=== PATIENT | female | born 2000 | race Caucasian/White ===

== ENCOUNTER 2024-02-22 11:55 | Outpatient (CLI) | payer SELFPAY ==
--- OUTSIDE RECORDS SUMMARY | 2024-02-22 12:00 | XMS_ITS | Continuity of Care Document ---
Author Organization [facility] Address [address] [place] [address] Encounter LTTL_LA FIN NBR [id number] Date(s): 10/28/22 - 10/29/22 [facility] [address], [place] [address] Encounter Diagnosis Post-dates (Discharge Diagnosis) - 10/28/22 Spontaneous vaginal delivery(Discharge Diagnosis) - 10/29/22 Discharge Disposition: Home or Self Care Attending Physician: Edison Albright Admitting Physician: Edison Albright Referring Physician: Edison Albright Allergies, Adverse Reactions, Alerts No Known Medication Allergies Functional Status 10/29/22 Verbalizes Home Medications Accurately Family Member Travel History No recent t ravel Recent Travel History No recent travel Other exposure to Infectious Disease Non e Medications No Known Medications Problem List Condition Confirmation Course Effective Dates Status Health St atus Informant Post-dates Confirmed Active Confirmed 10/29/22 Active Normal first in third trimester Confirmed Active Spontaneous vaginal delivery Confirmed Active Results Laboratory List Name Date Automated Diff 10/29/22 ABO/Rh Echo 10/29/22 ABSC Echo (Antibody Screen Echo) 10/29/22 CBC w/ Diff 10/29/22 Most recent to oldest [Reference Range]: 1 WBC [4.8-10.8 K/mcL] 17.5 K/mcL *HI* (10/29/22 12:05 AM) RBC [4.20-5.40 Million/mcL] 4.16 Million /mcL *LOW* (10/29/22 12:05 AM) Neutro Auto [42.2-75.2 %] 82.3 % *HI* (10/29/22 12:05 AM) Lymph Auto [20.5-51.1 %] 11.9 % *LOW* (10/29/22 12:05 AM) Swift Auto [1.7-9.3 %] 5.0 % (10/29/22 12:05 AM) Basophil Auto [0.0-0.8 %] 0.2 % (10/29/22 12:05 AM) Baso Absolute [0.0-0.2 K/mcL] 0.0 K/mcL (10/29/22 12:05 AM) MCV [81.0-99.0 fL] 87.0 fL (10/29/22 12:05 AM) MCHC [32.0-36.0 g/dL] 32.6 g/dL (10/29/22 12:05 AM) Lymph Absolute [1.2-3.4 K/mcL] 2.1 K/mcL (10/29/22 12:05 AM) Hct [37.0-47.0 %] 36.2 % *LOW* (10/29/22:05 AM) Swift Absolute [0.1-0.6 K/mcL] 0.9 K/mcL *HI* (10/29/22:05 AM) MCH [27.0-31.0 pg] 28.4 pg (10/29/22 12:05 AM) Neutro Absolute [1.4-6.5 K/mcL] 14.4 K/m cL *HI* (10/29/22 12:05 AM) Hgb [12.0-16.0 g/dL] 11.8 g/dL *LOW* (10/29/22 12:05 AM) MPV [7.4-10.4 fL] 12.6 fL *HI* (10/29/22 12:05 AM) Platelets [130-400 K/mcL] 183 K/mcL (10/29/22 12:05 AM) Eos Absolute [0.0-0.2 K/mcL] 0.0 K/mcL (10/29/22 12:05 AM) RDW-CV [11.5-14.5 %] 14.2 % (10/29/22 12:05 AM) Imm Gran Absolute 0.09 *NA* (10/29/22:05 AM) Imm Gran Auto [0.0-0.5 %] 0.5 % (10/29/22 12:05 AM) ABO/Rh Echo O POS *Unknown* (4/8/23 12:05 AM) Eos, Auto [0.00-3.00 %] 0.10 % (10/29/22 12:05 AM) ABSC Echo Negative ABSC (10/29/22 12:05 AM) Vital Signs Most recent to oldest [Reference Range]: 1 2 3 Temperature Temporal Artery [36-38 Deg C] 37.2 Deg C (10/29/22 7:25 PM) 37.0 Deg C (10/29/22 1:55 PM) 37.0 Deg C (10/29/22 12:15 PM) Peripheral Pulse Rate [60-100 bpm] 98 bpm (10/29/22 1:35 AM) 98 bpm (10/29/22 1:30 AM) 78 bpm (10/29/22 1:25 AM) Heart Rate Monitored [60-100 bpm] 83 bpm (10/29/22 7:25 PM) 79 bpm (10/29/22 2:40 PM) 88 bpm (10/29/22 2:22 PM) Respiratory Rate [12-24 br/min] 18 br/min (10/29/22 7:25 PM) 16 br/min (10/29/22 2:40 PM) 18 br/min (10/29/22 2:22 PM) Blood Pressure [90-140/60-90 mmHg] 108/68mmHg (10/29/22 7:25 PM) 156/70mmHg *HI* (10/29/22 2:40 PM) 134/76mmHg (10/29/22 2:22 PM) Mean Arterial Pressure, Cuff [65-140 mmHg] 99 mmHg (10/29/22 2:40 PM) 95 mmHg (10/29/22 2:22 PM) 95 mmHg (10/29/22 2:06 PM) Blood Pressure Location Left arm (10/29/22 7:25 PM) Right arm (10/29/22 2:40 PM) Right arm (10/29/22 2:22 PM) Blood Pressure Method Automatic (10/29/22 7:25 PM) Automatic (10/29/22 2:40 PM) Automatic (10/29/22 2:22 PM) Weight 66.670 kg (10/29/22 6:58 AM) Weight Dosing 66.670 kg (10/29/22 6:58 AM) Height 165.000 cm (10/29/22 6:58 AM) Height/Length Dosing 165.000 cm (10/29/22 6:58 AM) Body Mass Index 24.490 kg/m2 (10/29/22 6:58 AM) Hospital Discharge Instructions Patient Education 10/29/2022 17:30:38 [facility] - Vaginal or Delivery Post Discharge Instructions (CUSTOM) [facility] POST DISCHARGE INSTRUCTIONS Going home after a Vaginal or delivery GENERAL: You have just had a baby. It is normal to feel tired and worn out over the next several weeks. Sleep is difficult to get when you have a . We recommend sleeping when your baby sleeps if possible or asking someone to watch your so you can nap. Some discomfort is expected after a vaginal delivery. Most times this discomfort can be adequately managed with rest, heat, Ibuprofen, and Tylenol. Occasionally a narcotic may be needed for breakthrough pain. If you begin to have pain that is not controlled with the medications you were sent home with or if you develop fever and chills, please give the office a call. Vaginal bleeding is normal as your uterus works on returning to its normal size. While nursing yourbaby your uterus may feel crampy and your bleeding may increase during these times. You may experience some clots that may be dime size, quarter size and fifty cent size. This is normal. If you continue to pass larger clots, and the flow is increasing over 4 hours, we recommend that you call the office. If you had a vaginal tear that required suturing these sutures will dissolve over the next three weeks. During this process you may notice some yellowish drainage that may have a foul odor. This is the suture material breaking down, and it is a normal process. Keep the tissue clean with your pericare bottle or by taking a bath. Tucks pads can also be helpful. If you have an incision on your abdomen these sutures will dissolve on their own over the next 2 to 3 weeks. There are sutures that are deeper inside that will take 3 months to dissolve. Remember that eating a diet rich in protein will help your incision heal. When showering let the water run over your incision and pat dry with a towel. You do not need to redress the wound. If it rubs against your pants and feels sore, it is fine to place a gauze pad between your incision and your clothing for cushioning. If you are your milk will come in three or four days after you have given . It is normal for your nipples to feel sore for the first couple of weeks, but it is not normal for them to bleed, crack, or feel so raw that you feel like stopping breast feeding. We have support on the OB unit and Kelly is also a biztalk consultant in the office. They are very willing to help and provide support in any way they can. During your we talked about what your control plans would be after your delivery. Most times we can make a plan at your six week post checkup and start the plan of your choice at that time. If we know ahead of time what your plan is we can schedule you appropriately and make sure we have what we need on hand when you come for the appointment. It is normal to experience post blues. Your hormone levels change dramatically after you deliver and this can cause you to feel tired, teary eyed, sad, and overwhelmed at times. The post blues typically improve after 2-3 weeks. Post depression can settle in after that and can be very worrisome. If you feel that you cannot stop crying, do not want to see your baby, are struggling to leave your house and/or find that your mind is racing and you can't settle down, please call [facility], and we can see you to discuss depression. ACTIVITY: If you had a vaginal tear that required suturing please avoid sexual intercourse until your six week post visit. If you had no tearing we recommend that you wait to have intercourse until all of your bleeding has stopped. Keep in mind that you can get if you aren't on anything for contraception. If your baby was delivered by please avoid sexual intercourse until your six week post visit. You should also do no heavy lifting for six weeks. Any lifting that takes the strength ofboth of your arms/hands is contraindicated. If you need both hands because whatever you are liftingis cumbersome that is fine. For example, a laundry basket with a few bath towels in it. Also it is good for you to climb stairs and to go for small walks. Your blood volume doubles during . After delivery your body works on removing all of this extra fluid. You may have noticed that your legs and ankles felt pretty swollen prior to delivery. It is normal to see this swelling get worse after delivery. It gets worse if you aren't drinking enough water and/or if you are eating foods with too much sodium. Push the water and watch your salts tohelp the swelling resolve as quickly as possible. Putting your feet up and wearing 2 pairs of socksfor compression can help as well. Most post women who wish to return to work typically do so between 6 and 12 weeks. If you feel you have recovered to the point that you are ready to return to work, please call the office and let one of the secretaries know. It is usually best to discuss your return to work with your employer and pick a date for your return you both agree upon. Let us know that date and a letter will be provided that can be faxed to your employer clearing you to return to work without restriction on yourchosen date. MEDICATIONS: Continue all regularly prescribed medications unless your provider told you to stop a particular medication after your delivery. Continue taking your vitamins until your six week post visit. Ibuprofen is the best medication for your baseline pain control. Taking 600mg by mouth every four hours well help with most of your post pain. Taking it with food is best so it doesn't upset your stomach. Taking it consistently will provide you the greatest pain relief. Tylenol combined with a narcotic: You may have been sent home with a narcotic for pain control. Taking 1 or 2 tablets every 4-6 hours as needed can be helpful for pain you have that isn't covered by the Ibuprofen. We recommend trying one tablet in an attempt to get your pain at a five or less on the pain scale. If after twenty minutes your pain is still greater than a five, you may take the second tablet. There is typically 325mg of Tylenol in each tablet. Be careful not to consume more than 3000mg of Tylenol daily. Most people will find that they need narcotic containing medications sparingly and within a few days not at all. If you had a delivery you may need this medication for a few extra days. These medications are constipating, can leave you slightly sick to your stomach and don't help with inflammation. Increase fluids and fiber. You may need an over the counter stool softener such as Colace or Senna. Taper this type of medication first and then the Ibuprofen. Our office policy is that post op patients can use narcotics in addition to Ibuprofen for up to 7 days. After that, post op pain should be treated with Ibuprofen alone and no further prescriptions for narcotics will be provided. These are the two main medications that we use for post op pain management. See below for the medications that we have recommended you use when you go home. You will have to have the prescriptions filled by your pharmacy. Ibuprofen 600mg by mouth every 4 hours for baseline pain control. Percocet 5/325mg by mouth, 1 or 2 tablets every 4 to 6 hours as needed for pain. Tylenol #3 by mouth, 1 or 2 tablets every 4 to 6 hours as needed for pain. Continue taking your vitamins at least until your six week post visit. Iron sulfate 325mg twice daily - take on an empty stomach with a glass of OJ or a vitamin C tablet until gone. Colace or Senakot once or twice daily to avoid constipation. NorQD for control taken daily at the same time starting in 2 weeks. FOLLOW UP APPOINTMENT: Post appointment is on @ . If this time does not work for you, please call the office to reschedule. The number is . If you need to contact Maternity thenumber is and ask for the Maternity Department. Follow Up Care 10/28/2022 23:39:42 With:Edison Albright Address: [address] [place] [phone] When:Within 2 Week(s) Comments:?? appointment Discharge instructions * Miriam Ryan: PERFORM Event Display: Discharge Instructions Authored Date: [id number] ENMA MCKEON :2000 Age:22 years Sex:Female Visit Date:10/28/2022 Hospital Discharge Instructions We would like to thank you for allowing us to assist you with your healthcare needs. The following includes patient education materials and information regarding your injury/illness. Your Next Steps Discharge Orders Discharge Diet Instruction, Regular Discharge Follow Up Instructions, 10/29/22 18:29:00 EDT, When following are met: Feeling improved, Follow-up with Dr. Albright in _2___ weeks . Discharge Patient Instructions, Continue vitamins. Tylenol or Motrin every 4 hours as needed for pain. Gradually increase activity. Notify doctor if temperature greater than 100.5 ??F. Nothing in vagina for 6 weeks or until bleeding stops. Contraception . Discharge Patient Instructions, Breastfeed baby Discharge Patient Instructions, No heavy lifting for 6 weeks. Discharge Patient Instructions, No driving for 48 hours. Follow Up Appointments Follow Up with??Edison Albright When:??In 2 weeks Why: ?? appointment Where: [address] [place] [phone] Your Summary Your Care Team Admitting Physician - Edison Albright Attending Physician - Edison Albright Referring Physician - Edison Albright Your Diagnosis Spontaneous vaginal delivery Post-dates Problems Ongoing - Any problem that you are currently receiving treatment for. Normal first in third trimester Post-dates Spontaneous vaginal delivery Tests Performed/Pending ABO/Rh Echo Antibody Screen Echo Automated Diff CBC w/ Diff Discharge Vitals Temperature??(Temporal Artery) 98.6 ??F (37.0 ??C) Heart Rate??(Monitored) 79 Respiratory Rate?? 16 Blood Pressure?? 156/70?? Height?? 64.96 in (165.000 cm) Weight?? 147.01 lb (66.670 kg) BMI?? 24.490 Allergies No Known Medication Allergies Education Materials [facility] POST DISCHARGE INSTRUCTIONS Going home after a Vaginal or delivery GENERAL: You have just had a baby. It is normal to feel tired and worn out over the next several weeks. Sleep is difficult to get when you have a . We recommend sleeping when your baby sleeps if possible or asking someone to watch your so you can nap. Some discomfort is expected after a vaginal delivery. Most times this discomfort can be adequately managed with rest, heat, Ibuprofen, and Tylenol. Occasionally a narcotic may be needed for breakthrough pain. If you begin to have pain that is not controlled with the medications you were sent home with or if you develop fever and chills, please give the office a call. Vaginal bleeding is normal as your uterus works on returning to its normal size. While nursing yourbaby your uterus may feel crampy and your bleeding may increase during these times. You may experience some clots that may be dime size, quarter size and fifty cent size. This is normal. If you continue to pass larger clots, and the flow is increasing over 4 hours, we recommend that you call the office. If you had a vaginal tear that required suturing these sutures will dissolve over the next three weeks. During this process you may notice some yellowish drainage that may have a foul odor. This is the suture material breaking down, and it is a normal process. Keep the tissue clean with your pericare bottle or by taking a bath. Tucks pads can also be helpful. If you have an incision on your abdomen these sutures will dissolve on their own over the next 2 to 3 weeks. There are sutures that are deeper inside that will take 3 months to dissolve. Remember that eating a diet rich in protein will help your incision heal. When showering let the water run over your incision and pat dry with a towel. You do not need to redress the wound. If it rubs against your pants and feels sore, it is fine to place a gauze pad between your incision and your clothing for cushioning. If you are your milk will come in three or four days after you have given . It is normal for your nipples to feel sore for the first couple of weeks, but it is not normal for them to bleed, crack, or feel so raw that you feel like stopping breast feeding. We have support on the OB unit and Kelly is also a biz[employer] consultant in the office. They are very willing to help and provide support in any way they can. During your we talked about what your control plans would be after your delivery. Most times we can make a plan at your six week post checkup and start the plan of your choice at that time. If we know ahead of time what your plan is we can schedule you appropriately and make sure we have what we need on hand when you come for the appointment. It is normal to experience post blues. Your hormone levels change dramatically after you deliver and this can cause you to feel tired, teary eyed, sad, and overwhelmed at times. The post blues typically improve after 2-3 weeks. Post depression can settle in after that and can be very worrisome. If you feel that you cannot stop crying, do not want to see your baby, are struggling to leave your house and/or find that your mind is racing and you can't settle down, please call [facility], and we can see you to discuss depression. ACTIVITY: If you had a vaginal tear that required suturing please avoid sexual intercourse until your six week post visit. If you had no tearing we recommend that you wait to have intercourse until all of your bleeding has stopped. Keep in mind that you can get if you aren't on anything for contraception. If your baby was delivered by please avoid sexual intercourse until your six week post visit. You should also do no heavy lifting for six weeks. Any lifting that takes the strength ofboth of your arms/hands is contraindicated. If you need both hands because whatever you are liftingis cumbersome that is fine. For example, a laundry basket with a few bath towels in it. Also it is good for you to climb stairs and to go for small walks. Your blood volume doubles during . After delivery your body works on removing all of this extra fluid. You may have noticed that your legs and ankles felt pretty swollen prior to delivery. It is normal to see this swelling get worse after delivery. It gets worse if you aren't drinking enough water and/or if you are eating foods with too much sodium. Push the water and watch your salts tohelp the swelling resolve as quickly as possible. Putting your feet up and wearing 2 pairs of socksfor compression can help as well. Most post women who wish to return to work typically do so between 6 and 12 weeks. If you feel you have recovered to the point that you are ready to return to work, please call the office and let one of the secretaries know. It is usually best to discuss your return to work with your employer and pick a date for your return you both agree upon. Let us know that date and a letter will be provided that can be faxed to your employer clearing you to return to work without restriction on yourchosen date. MEDICATIONS: Continue all regularly prescribed medications unless your provider told you to stop a particular medication after your delivery. Continue taking your vitamins until your six week post visit. Ibuprofen is the best medication for your baseline pain control. Taking 600mg by mouth every four hours well help with most of your post pain. Taking it with food is best so it doesn't upset your stomach. Taking it consistently will provide you the greatest pain relief. Tylenol combined with a narcotic: You may have been sent home with a narcotic for pain control. Taking 1 or 2 tablets every 4-6 hours as needed can be helpful for pain you have that isn't covered by the Ibuprofen. We recommend trying one tablet in an attempt to get your pain at a five or less on the pain scale. If after twenty minutes your pain is still greater than a five, you may take the second tablet. There is typically 325mg of Tylenol in each tablet. Be careful not to consume more than 3000mg of Tylenol daily. Most people will find that they need narcotic containing medications sparingly and within a few days not at all. If you had a delivery you may need this medication for a few extra days. These medications are constipating, can leave you slightly sick to your stomach and don't help with inflammation. Increase fluids and fiber. You may need an over the counter stool softener such as Colace or Senna. Taper this type of medication first and then the Ibuprofen. Our office policy is that post op patients can use narcotics in addition to Ibuprofen for up to 7 days. After that, post op pain should be treated with Ibuprofen alone and no further prescriptions for narcotics will be provided. These are the two main medications that we use for post op pain management. See below for the medications that we have recommended you use when you go home. You will have to have the prescriptions filled by your pharmacy. Ibuprofen 600mg by mouth every 4 hours for baseline pain control. Percocet 5/325mg by mouth, 1 or 2 tablets every 4 to 6 hours as needed for pain. Tylenol #3 by mouth, 1 or 2 tablets every 4 to 6 hours as needed for pain. Continue taking your vitamins at least until your six week post visit. Iron sulfate 325mg twice daily - take on an empty stomach with a glass of OJ or a vitamin C tablet until gone. Colace or Senakot once or twice daily to avoid constipation. NorQD for control taken daily at the same time starting in 2 weeks. FOLLOW UP APPOINTMENT: Post appointment is on @ . If this time does not work for you, please call the office to reschedule. The number is [phone]. If you need to contact Maternity thenumber is and ask for the Maternity Department. Patient Name:ENMA MCKEON I have received this information and my questions have been answered. Patient/Shoe Stamper Name: Patient/Shoe Stamper Signature: Relationship to Patient: Witness Name/Signature: Date: Electronically Signed on: 10/29/2022 18:47 EDTSigned by:[facility] Obstetrics Progress note * Edison Albright: PERFORM Event Display: Obstetrics Progress Note Authored Date: [id number] ENMA MCKEON :2000 Age:22 years Sex:Female Visit Date:10/28/2022 History of Present Illness Pt comfortable with her Epidural. Physical Exam Vitals & Measurements T:??37.1?C ??(Temporal Artery)?? TMIN:??36.9?C ??(Temporal Artery)?? TMAX:??37.1?C ??(Temporal Artery)?? HR:??103??(Monitored)?? BP:??101/67?? SpO2:??98%?? HT:??165.000??cm?? WT:??66.670??kg?? BMI:??24.490?? Cervix-4 cm / 100%/-1, Vertex, AROM-clear fluid Labor Details Baby A FHR Baseline:135 FHR Baseline Description:Normal, 110-160 bpm FHR Baseline Variability:Moderate variability Activity:Present per patient Membranes Membrane Status:Intact Uterine Uterine ActivityNormal Uterine Contraction Frequency5-7 Uterine Contraction Monitoring MethodExternal toco Cervical Assessment/Plan 1.??Post-dates ??O48.0 2.??Normal first in third trimester??Z34.03 IV Pitocin for??labor augmentation LMP/EGA/NIKKI No qualifying data available. Gestational Age (EGA) and NIKKI? * Note: EGA calculated as of 10/29/2022 ?? NIKKI:??10/19/2022?EGA*:??41 weeks 3 days ?Type:??Authoritative?Method Date:??10/29/2022 ?Method:??Reported EGA/NIKKI??(10/29/2022) ?Confirmation:??Confirmed ?Description:??Due date ?Comments:??-- ?Entered by:??Edison Albright on 10/29/2022? Other NIKKI Calculations for this : ?No additional NIKKI calculations have been recorded for this Membrane Status Information Baby A Membrane Status:Intact OB History History?(0,0,0,0)?No previous pregnancies history have been recorded Medications Inpatient benzocaine-menthol 20%-0.5% topical spray, 1 gio, Topical, As Directed, PRN calcium (as carbonate) 500 mg oral tablet, 500 mg= 1 tab, Oral, every 2 hr, PRN calcium (as carbonate) 500 mg oral tablet, 1000 mg= 2 tab, Oral, every 2 hr, PRN docusate-senna 50 mg-8.6 mg oral tablet, 1 tab, Oral, BID, PRN Lactated Ringers Injection 1,000 mL, 1000 mL, IV multivitamin, , 1 tab, Oral, Daily simethicone, 80 mg= 1 tab, Oral, As Directed, PRN sodium chloride 0.9% flush, 10 mL, IV Flush, every 8 hr (juana) sodium chloride 0.9% flush, 10 mL, IV Flush, As Directed, PRN witch jennifer 50% rectal pad, 1 gio, Topical, As Directed, PRN Home No active home medications Electronically Signed on 10/29/22 08:18 AM Edison Albright Procedure note * Shashank Blanco: PERFORM Event Display: Procedure Note Authored Date: [id number] 10/29/2022 01:31:05 Epidural placement for labor and delivery Monitors attached and patient positioned sitting on the side of the bed. L 3-4 interspace identified using landmarks Sterile prep and drape.?? Sterile gloved used. 1% lidocaine used on skin then 17g Touhey needle used for epidural placement. Loss of resistance found at __4_ cm Catheter threaded with ease - secured at??_12.5__ cm No CSF; no heme; no paresthesia Test dose syringe was attached; negative aspiration.?? 5mL 1.5% lidocaine with 1:200,000 epinephrine given.?? Test dose negative. Bolus dose 1% lodo PF 8 cc Ropiviaine 0.2% gtt started as _8__ mL/hr Electronically Signed on 10/29/22 01:31 AM Shashank Blanco History and physical note * Edison Albright P: MODIFY, PERFORM Event Display: History and Physical Authored Date: [id number] ENMA MCKEON :2000 Age:22 years Sex:Female Visit Date:10/28/2022 History of Present Illness 22yo , NIKKI- 10/19/2022 The patient presented to the OB unit in labor. ??She has received care with lead caster [place]. ??She states that??she has been in labor for 30 hours and is 3 cm dilated with bulging membranes.?? GBS is negative.?? She wanted to come to the hospital for??delivery and pain management. Physical Exam General: Alert and oriented, well nourished, no acute distress Eye: Pupils equal, EOMI HEENT: Normocephalic, grossly normal hearing, moist oral mucosa, no scleral icterus Lungs: Clear to auscultation, non-labored respiration Heart: Normal rate, regular rhythm, no murmurs Abdomen: Nontender, gravid Musculoskeletal: Grossly normal range of motion and strength, no tenderness or swelling Skin: Skin is warm, dry, no rashes Neurologic: Awake, alert, and oriented X4 Psychiatric: Cooperative, appropriate mood and affect ? Cervix: 3m, Vertex presentation, Intact Membranes ? Heart Monitor: Reassuring?? heart rate tracing. ??No??worrisome decelerations.?? Irregular contractions. Assessment/Plan 1.??Post-dates ??O48.0 2.??Normal first in third trimester??Z34.03 LMP/EGA/NIKKI No qualifying data available. Gestational Age (EGA) and NIKKI? * Note: EGA calculated as of 10/29/2022 ?? NIKKI:??10/19/2022?EGA*:??41 weeks 3 days ?Type:??Authoritative?Method Date:??10/29/2022 ?Method:??Reported EGA/NIKKI??(10/29/2022) ?Confirmation:??Confirmed ?Description:??Due date ?Comments:??-- ?Entered by:??Edison Albright on 10/29/2022? Other NIKKI Calculations for this : ?No additional NIKKI calculations have been recorded for this OB History History?(0,0,0,0)?No previous pregnancies history have been recorded Antepartum Risk Factors No risk factors documented Problem List/Past Medical History Ongoing Normal first in third trimester Post-dates Historical No qualifying data Medications Inpatient benzocaine-menthol 20%-0.5% topical spray, 1 gio, Topical, As Directed, PRN calcium (as carbonate) 500 mg oral tablet, 500 mg= 1 tab, Oral, every 2 hr, PRN calcium (as carbonate) 500 mg oral tablet, 1000 mg= 2 tab, Oral, every 2 hr, PRN docusate-senna 50 mg-8.6 mg oral tablet, 1 tab, Oral, BID, PRN Lactated Ringers Injection 1,000 mL, 1000 mL, IV multivitamin, , 1 tab, Oral, Daily simethicone, 80 mg= 1 tab, Oral, As Directed, PRN sodium chloride 0.9% flush, 10 mL, IV Flush, every 8 hr (juana) sodium chloride 0.9% flush, 10 mL, IV Flush, As Directed, PRN witch jennifer 50% rectal pad, 1 gio, Topical, As Directed, PRN Home No active home medications Allergies No Known Medication Allergies Transcribed Labs No qualifying data Electronically Signed on 10/29/22 08:16 AM Edison Albright Discharge summary * Edison Albright: PERFORM Event Display: Discharge Summary Authored Date: [id number] ENMA MCKEON :2000 Age:22 years Sex:Female Visit Date:10/28/2022 History of Present Illness PPD#0 The patient is doing well status post??Spontaneous Vaginal Delivery.?? She is ambulatory and tolerating regular diet.?? She is working on??breast-feeding.?? The [place] blood flow is tapering. ??Her pain is managed with??oral Tylenol and Ibuprofen. She requests early discharge home. Recovery and Fundal ToneFirm Fundal Height (-1) umbilicus Lochia AmountLight Lochia ColorRubra Physical Exam Vitals & Measurements T:??37.0?C ??(Temporal Artery)?? TMIN:??36.8?C ??(Temporal Artery)?? TMAX:??37.1?C ??(Temporal Artery)?? HR:??79??(Monitored)?? RR:??16?? BP:??156/70?? SpO2:??98%?? HT:??165.000??cm?? WT:??66.670??kg?? BMI:??24.490?? GENERAL: Cooperative, alert, no acute distress. Appears pale. Not diaphoretic. HEENT: Head is normocephalic, atraumatic. PERRLA.?? HEART: Regular rate and rhythm without murmur. LUNGS: Clear to auscultation bilaterally, no wheeze, rales or rhonchi. ABDOMEN: Soft, nondistended.??Fundus is firm and palpable below the umbilicus. EXTREMITIES: No edema or tenderness. Vagina: No abnormal swelling??or??signs of infection. ??Tapering lochia rubra.?? Assessment/Plan 1.??Spontaneous vaginal delivery??O80 2.??Post-dates ??O48.0 Orders: Bladder Scan, 10/29/22 16:48:00 EDT, PRN, for urinary discomfort, 10/29/22 16:48:00 EDT Discharge Diet Instruction, Regular Discharge Follow Up Instructions, 10/29/22 18:29:00 EDT, When following are met: Feeling improved, Follow-up with Dr. Albright in _2___ weeks . Discharge Patient, 10/29/22 18:29:00 EDT, Home Independently Discharge Patient Instructions, Continue vitamins. Tylenol or Motrin every 4 hours as needed for pain. Gradually increase activity. Notify doctor if temperature greater than 100.5 ??F. Nothing in vagina for 6 weeks or until bleeding stops. Contraception . Discharge Patient Instructions, No driving for 48 hours. Discharge Patient Instructions, No heavy lifting for 6 weeks. Discharge Patient Instructions, Breastfeed baby Patient Education, 10/29/22 18:29:00 EDT, Stop date 10/29/22 18:29:00 EDT, teaching per protocol for mother and baby. Checks, 10/29/22 16:48:00 EDT, Constant order, Per protocol until discharge PSO Admit to Inpatient, Obstetrics, Inpatient, Edison Albright, 10/29/22 2:27:00 EDT, 10/29/22 2:27:00 EDT, 10/29/22 2:27:00 EDT, 2 midnights or more Delivery Details Baby A Delivery Type:Vaginal D-EGA at Delivery:41+3 Maternal Delivery Complications:None LMP/EGA/NIKKI No qualifying data available. Gestational Age (EGA) and NIKKI? * Note: EGA calculated as of 10/29/2022 ?? NIKKI:??10/19/2022?EGA*:??41 weeks 3 days ?Type:??Authoritative?Method Date:??10/29/2022 ?Method:??Reported EGA/NIKKI??(10/29/2022) ?Confirmation:??Confirmed ?Description:??Due date ?Comments:??-- ?Entered by:??Edison Albright on 10/29/2022? Other NIKKI Calculations for this : ?No additional NIKKI calculations have been recorded for this OB History History?(0,0,0,0)?No previous pregnancies history have been recorded Antepartum Risk Factors No risk factors documented Problem List/Past Medical History Ongoing Normal first in third trimester Post-dates Spontaneous vaginal delivery Historical No qualifying data Medications Inpatient No active inpatient medications Home No active home medications Allergies No Known Medication Allergies Electronically Signed on 10/29/22 06:32 PM Edison Albrigth Patient Care team information Care Team Related Persons Name: LINDA FEMALE Address: [address] [address] [facility]
--- OUTSIDE RECORDS SUMMARY | 2024-02-22 12:00 | XMS_ITS | Continuity of Care Document ---
Author Organization [facility] Address [address] [place] [address] Encounter LTTL_PR FIN NBR [id number] Date(s): 11/30/23 - 11/30/23 [facility] [address], [place] [address] Discharge Disposition: Home or Self Care Attending Physician: NAIN OLEARY Admitting Physician: NAIN OLEARY Referring Physician: NAIN OLEARY Allergies, Adverse Reactions, Alerts No Known Medication Allergies Problem List Condition Confirmation Course Effective Dates Status Health St atus Informant Post-dates Confirmed Active Normal first in third trimester Confirmed Active Spontaneous vaginal delivery Confirmed Active Results Laboratory List Name Date CBC w/o Diff 11/30/23 Ferritin 11/30/23 Iron Level 11/30/23 Thyroid Stimulating Hormone 11/30/23 Vitamin B12 Level 11/30/23 Vitamin D 25 Hydroxy Level 11/30/23 Most recent to oldest [Reference Range]: 1 WBC [4.8-10.8 K/mcL] 8.9 K/mcL (11/30/23 9:15 AM) RBC [4.20-5.40 Million/mcL] 3.57 Million /mcL *LOW* (11/30/23 9:15 AM) MCV [81.0-99.0 fL] 87.5 fL (11/30/23 9:15 AM) MCHC [32.0-37.0 g/dL] 33.6 g/dL (11/30/23 9:15 AM) Hct [37.0-47.0 %] 31.2 % *LOW* (11/30/23 9:15 AM) Vitamin D 25 [place] [30.0-100.0 ng/mL] 21.0 ng/mL 1 *LOW* (11/30/23 9:15 AM) MCH [27.0-31.0 pg] 29.4 pg (11/30/23 9:15 AM) Hgb [12.0-16.0 g/dL] 10.5 g/dL *LOW* (11/30/23 9:15 AM) B12 Level [180-914 pg/mL] 275 pg/mL (11/30/23 9:15 AM) MPV [7.4-10.4 fL] 9.6 fL (11/30/23 9:15 AM) Ferritin Level [11.0-307.0 ng/mL] 7.1 ng /mL *LOW* (11/30/23 9:15 AM) Platelets [130-400 K/mcL] 225 K/mcL (11/30/23 9:15 AM) TSH [0.45-5.33 mcIntlUnit/mL] 2.90 mcInt lUnit/mL (11/30/23 9:15 AM) Iron [50-212 mcg/dL] 34 mcg/dL *LOW* (11/30/23 9:15 AM) RDW-CV [11.5-14.5 %] 12.5 % (11/30/23 9:15 AM) 1Interpretive Data: VIT D STATUS: RANGE: Deficient <20 ng/mL Insufficiency 20-30 ng/mL Sufficiency 30-100 ng/mL Toxicity >100 ng/mL Patients that have undergone flourescein dye angiography without allowing enough time for clearanceof the flourescein dye may have falsely elevated Vitamin D levels. summary Document * Event Display: Summary Document Authored Date: [id number] ENMA MCKEON : 2000 Age: 22 Years ENMA MCKEON : [birth year] Summary (Date of Report: 01/21/23) G 1 P 0 (0,0,0,0) Gestation: Lentz LMP (from pt. history): -- NIKKI: 10/19/2022 NIKKI/EGA Method: Reported EGA/NIKKI EGA: Delivered Gestation info at delivery: Baby A : 41 weeks 3 days ENMA MCKEON : [birth year] Antepartum Note No antepartum notes have been documented ENMA MCKEON : 99 Problems (Active Problems Only) (SNOMED CT: 731185914, Onset: 10/29/22) Post-term (SNOMED CT: 8184978515, Onset: --) Primigravida (SNOMED CT: 881837, Onset: --) Vaginal delivery (SNOMED CT: 293237229, Onset: --) ENMA MCKEON : 99 Risk Factors and Genetic Screening All Results Documented Since 10/29/2022 Risk Factors (Current ) No risk factors have been recorded for this . Ethnic Screening No ethnicities have been recorded. Genetic Disorders Screening No genetic disorders have been recorded. ENMA MCKEON : 89 Gestational Age (EGA) and NIKKI * Note: EGA calculated as of 01/21/2023 NIKKI: 10/18/2022 EGA*: 41 weeks 3 days Type: Authoritative Method Date: 10/28/2022 Method: Reported EGA/NIKKI (10/28/2022) Confirmation: Confirmed Description: Due date Comments: -- Entered by: Edison Albright on 10/28/2022 Other NIKKI Calculations for this : No additional NIKKI calculations have been recorded for this ENMA MCKEON : 99 Measurements Pre- Weight: -- Recent Weight Measured: 66.670 kg 10/29/22 (41 weeks) Height/Length Measured: 165.000 cm 10/29/22 (41 weeks) Body Mass Index Measured: 24.490 kg/m2 10/29/22 (41 weeks) ENMA MCKEON : [birth year] Exam and Notes Date LISSETTE Castro PTL S/S Cervix BP Weight Urine Baby cm Dil Eff(%) Sta mmHg lbs kg Gluc Prot FHR Activity Fet Pres 10/29/22 41w3d -- -- 10 100% +1 101/67 *147... -- -- Baby A = 150 -- -- 10/28/22 41w2d -- -- -- -- -- 107/58 -- -- -- Baby A = 130 *Present pe... -- * Weight 10/29/2022 147.007(lbs) 66.670(kg) * Activity 10/28/2022 Present per patient ENMA MCKEON : 99 Physical Exams Physical Exam Mental Status Level of Consciousness: Alert (10/29/22) Orientation Assessment: Oriented x 4 (10/29/22) Affect/Behavior: Appropriate, Calm (10/29/22) Distress: Moderate (10/29/22) Cardiovascular Cardiovascular Symptoms: None (10/29/22) Respiratory Respiratory Symptoms: None (10/29/22) Respirations: Unlabored (10/29/22) Respiratory Pattern: Regular (10/29/22) SpO2: 98 % (10/29/22) Integumentary Skin Color: Normal for ethnicity, [place] (10/29/22) Skin Description: [place] (10/29/22) Skin Temperature: Warm (10/29/22) ENMA MCKEON : 99 Blood Types and Anti-D Immune Globulin Blood Type and Screen Mother ABO/Rh: -- Mother Antibody Screen: -- Father of Baby ABO/Rh: -- Father of Baby Antibody Screen: -- Anti-D Immune Globulin Rho(D) Initial Status: -- Rho(D) 28 Week Status: -- Rho(D) Dates Given: -- ENMA MCKEON : 99 Tests and Lab Results Results ending with 'TR' have been keyed in by the practice or interpreted manually. Result Date: Estimated weeks post onset will display next to actual result date. Test Result Date Ref Range MCHC 32.6 g/dL 10/28/22 (41 weeks) (32.0 - 36.0) MCV 87.0 fL 10/28/22 (41 weeks) (81.0 - 99.0) Platelets 183 K/mcL 10/28/22 (41 weeks) (130 - 400) MPV (H) 12.6 fL 10/28/22 (41 weeks) (7.4 - 10.4) RBC (L) 4.16 Million/mcL 10/28/22 (41 weeks) (4.20 - 5.40) WBC (H) 17.5 K/mcL 10/28/22 (41 weeks) (4.8 - 10.8) MCH 28.4 pg 10/28/22 (41 weeks) (27.0 - 31.0) RDW-CV 14.2 % 10/28/22 (41 weeks) (11.5 - 14.5) Hct (L) 36.2 % 10/28/22 (41 weeks) (37.0 - 47.0) Hgb (L) 11.8 g/dL 10/28/22 (41 weeks) (12.0 - 16.0) Eos, Auto 0.10 % 10/28/22 (41 weeks) (0.00 - 3.00) Eos Absolute 0.0 K/mcL 10/28/22 (41 weeks) (0.0 - 0.2) Neutro Absolute (H) 14.4 K/mcL 10/28/22 (41 weeks) (1.4 - 6.5) Lymph Absolute 2.1 K/mcL 10/28/22 (41 weeks) (1.2 - 3.4) Baso Absolute 0.0 K/mcL 10/28/22 (41 weeks) (0.0 - 0.2) Basophil Auto 0.2 % 10/28/22 (41 weeks) (0.0 - 0.8) [place] Auto 5.0 % 10/28/22 (41 weeks) (1.7 - 9.3) Lymph Auto (L) 11.9 % 10/28/22 (41 weeks) (20.5 - 51.1) Neutro Auto (H) 82.3 % 10/28/22 (41 weeks) (42.2 - 75.2) [place] Absolute (H) 0.9 K/mcL 10/28/22 (41 weeks) (0.1 - 0.6) Imm Gran Auto 0.5 % 10/28/22 (41 weeks) (0.0 - 0.5) Imm Gran Absolute (N) 0.09 10/28/22 (41 weeks) ABO/Rh Echo (U) O POS 10/28/22 (41 weeks) ABSC Echo Negative ABSC 10/28/22 (41 weeks) ENMA MCKEON: 99 Actions No Actions have been documented. ENMA MCKEON : 99 Situational Awareness No comments have been documented. ENMA MCKEON : 99 Allergies (Active and Proposed Allergies Only) No Known Medication Allergies (Severity: Unknown severity, Onset: Unknown) ENMA MCKEON : [birth year] Medications Prescriptions and Home Medications Currently Active or Taking No medications have been recorded Inactive or Suspended (Prescriptions and documented medications since 07/31/22) No medications have been recorded Medication Administrations In-Office/Hospital (All in-office/hospital administrated medications ordered since 07/31/22) lidocaine 1% (lidocaine) 20 mL, N/A, Once Status: Completed Ordered: 10/29/22 Provider: [place], Generated lidocaine 2% (lidocaine) 100 mg = 5 mL, N/A, Once Status: Completed Ordered: 10/28/22 Provider: [facility], Generated miSOPROStol 1,000 mcg = 5 tab, N/A, Once Status: Completed Ordered: 10/29/22 Provider: [facility]User, Generated oxytocin 30 units = 3 mL, N/A, Once Status: Completed Ordered: 10/29/22 Provider: DomainUser, Generated ropivacaine 0.2% (ropivacaine) 200 mg = 100 mL, N/A, Once Status: Completed Ordered: 10/28/22 Provider: [place], Generated tranexamic acid 1,000 mg = 100 mL, N/A, Once Status: Completed Ordered: 10/29/22 Provider: [place], Generated acetaminophen (Acetaminophen 325 mg Tab [LTTL]) 650 mg = 2 tab, Oral, every 4 hr, PRN: pain, mild Status: Discontinued Ordered: 10/29/22 Provider: Edison Albright benzocaine-menthol 20%-0.5% topical spray (Benzocaine-Menthol Topical [place] [LTTL]) 1 gio, Topical, As Directed, PRN: other (see comment) Status: Discontinued Ordered: 10/28/22 Provider: Edison Albright calcium (as carbonate) 500 mg oral tablet (Calcium Carbonate 500 mg Chew Tab (Tums) [LTTL]) 500 mg = 1 tab, Oral, every 2 hr, PRN: dyspepsia Status: Discontinued Ordered: 10/28/22 Provider: Edison Albright calcium (as carbonate) 500 mg oral tablet (Calcium Carbonate 500 mg Chew Tab (Tums) [LTTL]) 1,000 mg = 2 tab, Oral, every 2 hr, PRN: dyspepsia Status: Discontinued Ordered: 10/28/22 Provider: Edison Albright docusate-senna 50 mg-8.6 mg oral tablet (Senna-Docusate 8.6 mg-50 mg Tab [LTTL]) 1 tab, Oral, BID, PRN: constipation Status: Discontinued Ordered: 10/28/22 Provider: Edison Albright ibuprofen (Ibuprofen 600 mg Tab [LTTL]) 600 mg = 1 tab, Oral, every 4 hr, PRN: pain, mild Status: Discontinued Ordered: 10/29/22 Provider: Edison Albright Lactated Ringers Injection 1,000 mL (Lactated Ringers 1,000 mL) 150 mL/hr, IV Status: Discontinued Ordered: 10/28/22 Provider: Edison Albright methylergonovine (Methylergonovine 0.2 mg/mL Inj 1 ml Vial [LTTL]) 0.2 mg = 1 mL, IM, Once, PRN: other (see comment) Status: Discontinued Ordered: 10/29/22 Provider: Edison Albright miSOPROStol (miSOPROStol 200 mcg Tab [LTTL]) 1,000 mcg = 5 tab, ND, Once, PRN: bleeding Status: Discontinued Ordered: 10/29/22 Provider: Edison Albright multivitamin, (Multiple Vitamins [LTTL]) 1 tab, Oral, Daily Status: Discontinued Ordered: 10/28/22 Provider: Edison Albright naloxone (Naloxone 0.4 mg/mL Inj 1ml Vial [LTTL]) 0.1 mg = 0.25 mL, IV Push, every 5 min, PRN: other (see comment) Status: Discontinued Ordered: 10/29/22 Provider: Edison Albright oxytocin (oxytocin 10 units/mL Inj 1ml Vial [LTTL]) 10 units = 1 mL, IM, Once, PRN: other (see comment) Status: Discontinued Ordered: 10/29/22 Provider: Edison Albright oxytocin IV additive 10 units + LR Diluent 1,000 mL (oxytocin 10 units + Lactated Ringers 1,000 mL) Titrate per protocol, IV Status: Discontinued Ordered: 10/29/22 Provider: Edison Albright oxytocin IV additive 30 units + Lactated Ringers Injection 500 mL (oxytocin 30 units + Lactated Ringers 500 mL) Titrate Per Protocol, IV Status: Discontinued Ordered: 10/29/22 Provider: Edison Albright simethicone (Simethicone 80 mg Chew Tab [LTTL]) 80 mg = 1 tab, Oral, As Directed, PRN: gas Status: Discontinued Ordered: 10/28/22 Provider: Edison Albright sodium chloride 0.9% flush (Sodium Chloride 0.9% Flush IV Akiko 10 mL [LTTL]) 10 mL, IV Flush, As Directed, PRN: other (see comment) Status: Discontinued Ordered: 10/28/22 Provider: Edison Albright sodium chloride 0.9% flush (Sodium Chloride 0.9% Flush IV Akiko 10 mL [LTTL]) 10 mL, IV Flush, every 8 hr (juana) Status: Discontinued Ordered: 10/28/22 Provider: Edison Albright tranexamic acid 1,000 mg = 10 mL, 330 mL/hr, IV Piggyback, Once, PRN: bleeding Status: Discontinued Ordered: 10/29/22 Provider: Edison Albright witch snow 50% rectal pad (Witch Snow 50% Top Pad [LTTL]) 1 gio, Topical, As Directed, PRN: other (see comment) Status: Discontinued Ordered: 10/28/22 Provider: Edison Albright ENMA MCKEON : [birth year] Immunizations No immunizations have been administered or recorded as given ENMA MCKEON : 99 Menstrual History Last Recorded Menstrual Period: -- Last Menstrual Period Description: -- Menarche Onset: -- Menarche Frequency: -- Menarche Length: -- Date of Menses Prior to LMP: -- On Hormonal Contracept within 2 months of LMP: -- Date of Home Test: -- Comments: -- ENMA MCKEON : 89 History (0,0,0,0) No previous pregnancies history have been recorded ENMA MCKEON : 99 Medical History Past Medical History No active past medical history has been recorded Family History No active positive family history has been recorded Procedure or Surgical History Delivery of Products of Conception, External Approach Age: 22 Years Date: 10/29/2022 Repair Perineum Muscle, Open Approach Age: 22 Years Date: 10/29/2022 Drainage of Amniotic Fluid, Therapeutic from Products of Conception, Via Natural or Artificial Opening Age: 22 Years Date: 10/28/2022 Insertion of Infusion Device into Spinal Canal, Percutaneous Approach Age: 22 Years Date: 10/28/2022 Introduction of Analgesics, Hypnotics, Sedatives into Epidural Space, Percutaneous Approach Age: 22 Years Date: 10/28/2022 Monitoring of Products of Conception, Cardiac Rate, External Approach Age: 22 Years Date: 10/28/2022 ENMA MCKEON : 89 Social & Psychosocial History Social History No active social history has been recorded Psychosocial History No active psychosocial history has been recorded ENMA MCKEON : 99 Infection History Infection history negative or not recorded ENMA MCKEON : 99 Anesthesia and Transfusions Prior Anesthesia or Transfusion Received: -- Prior Anesthesia Reaction(s): -- Prior Transfusion Reaction(s): -- Blood Transfusion Acceptable to Patient: -- ENMA MCKEON : 99 Plan and Patient Requests Desired Delivery Location: -- Education: -- Written Plan: -- Written Plan Location: -- Support Person/Clock And Watch Hands Mounter Relationship to Pt: -- Oral Intake OB: -- Labor Preferences: -- Non-Medicinal Pain Relief: -- Anesthesia/Pain Medication During Labor: -- Delivery Plan: -- Infant Feeding: -- Circumcision: -- Baby For Adoption: -- Patient Requests: -- Father of the Baby's Name: -- Tobacco Sweeper Selected: -- Surrogate : -- Support Person's Name: -- ENMA MCKEON : 89 Education Educational Materials/Leaflets Provided Title/Topic Date Provided [facility] - Vaginal or Delivery Post Discharge Instructions 10/29/22 ENMA MCKEON : 99 Registration and Information Race: White Ethnicity: Not , , or [place]ian Origin Marital Status: Unknown Language(s): Greek Samaritan Preference(s): Not Available Occupation/Education: Address, Phone, and Health Plans Home Address: [address] [place] [phone] (Home), --, -- Health Plans: 1 - SELF PAY Member/Group: -- Deductible: $ -- Type: Self Pay Address: [facility] [address], [place] [address] Phone: -- General Information OB Provider(s) Information: Not explicitly recorded. May be noted in encounter section below. See below for detailed information for all visits and information. Delivery Center/Hospital Information: -- [facility] Provider Information: -- Referring Provider Information: Edison Albright Primary Provider Information: -- /Partner Information: -- -- Support Person Information: -- Planned/Unplanned : -- Date Consent Signed for Tubal Ligation: -- Date Record Sent to Hospital: -- ENMA MCKEON : 99 Visits and Encounters (Known encounters since 10/29/2022. May include lab encounters.) Date Location Provider Type Medical Service 10/28/2022 Edison Gomes Inpatient Inpatient ENMA MCKEON : 99 Visit / Encounter Location Information The following information represents known location and contact information for locations visitedduring [facility] Business Address: [address] [place] [address] Phone: No phone numbers found on file for location ENMA MCKEON : 99 Visit Diagnosis (Note: All diagnoses documented since 10/29/2022) 10/28/22 - Prolonged first stage (of labor) (ICD-10-CM: O63.0, Date: ) 10/28/22 - Encounter for supervision of normal first , third trimester (ICD-10-CM: Z34.03,Date: ) 10/28/22 - 41 weeks gestation of (ICD-10-CM: Z3A.41, Date: ) 10/28/22 - Second degree perineal laceration during delivery (ICD-10-CM: O70.1, Date: ) 10/28/22 - Obstructed labor due to shoulder dystocia (ICD-10-CM: O66.0, Date: ) 10/28/22 - Labor and delivery complicated by cord around neck, without compression, not applicable or unspecified (ICD-10-CM: O69.81X0, Date: ) 10/28/22 - Single live (ICD-10-CM: Z37.0, Date: ) 10/28/22 - Post-term (ICD-10-CM: O48.0, Date: ) 10/28/22 - Post-term (ICD-10-CM: O48.0, Date: 10/28/22) 10/28/22 - Encounter for full-term uncomplicated delivery (ICD-10-CM: O80, Date: 10/29/22) 09/29/22 - Encounter for screening for raised alphafetoprotein level (ICD-10-CM: Z36.1, Date: ) 09/29/22 - Encounter for screening for raised alphafetoprotein level (ICD-10-CM: Z36.1, Date: ) 09/29/22 - Encounter for screening for raised alphafetoprotein level (ICD-10-CM: Z36.1, Date: ) 07/28/22 - Encounter for screening for chromosomal anomalies (ICD-10-CM: Z36.0, Date: ) 07/28/22 - Encounter for screening for chromosomal anomalies (ICD-10-CM: Z36.0, Date: ) 07/28/22 - Encounter for screening for chromosomal anomalies (ICD-10-CM: Z36.0, Date: ) ENMA MCKEON : 89 Delivery Summary Baby A Membrane Status Information ROM Date/Time: 10/29/22 06:40:00 Amniotic Fluid Color/Description: Clear Labor Information Labor Onset Methods: Augmented Augmentation Methods: Artificial rupture of membranes, Oxytocin infusion Monitoring FHR Monitoring Method: Doppler ultrasound Delivery Information Delivery Type: Vaginal Delivery of Head Date/Time: 10/29/22 12:23:00 Date/Time of : 10/29/22 12:25:00 Placenta Delivery Date/Time: 10/29/22 12:30:00 Placenta Delivery Method: Spontaneous Placenta to Pathology: No Cord Blood Sent to Lab: Yes Maternal Delivery Complications: None Delivery Physician: Edison Albright Information Nuchal Cord Times: 2 Nuchal Cord Tension: Loose Nuchal Cord Intervention: Reduced prior to delivery Umbilical Cord Description: 3 vessel cord Data Gender: Female ID Band Number: [id number] Outcome: Live Security Tag Number: [id number] Weight: 3.810 kg Score 1 Minute: 8 Score 5 Minute: 9 Tobacco Sweeper: Sergey Ugarte MD Note: Items documented with '--' had no clinical data which qualified at time of report creation END OF REPORT Patient Care team information Care Team Related Persons Name: LINDA MEG VINSON Address: Home [address] [place] [address], [phone]
[2024-02-22 12:06] VITALS: BP 107/75; PULSE 80; TEMP 36.9
[2024-02-22 12:33] VITALS: BP 107/75; PULSE 80
[2024-02-22 12:40] LABS: HCT 29.3 % (36.0-46.0); HGB 8.9 g/dL (11.2-15.7); MCH 23.7 pg (27.0-33.0); MCHC 30.4 % (32.0-36.0); MCV 78 fL (80-95); MPV 11.9 fL (8.0-11.0); Platelet Count 192 10^3/uL (130-400); RBC 3.75 10^6/uL (3.93-5.22); RDW 15.9 % (11.7-14.6); RDW-SD 44.7 fL; WBC 8.53 10^3/uL (4.4-10.8)
[2024-02-22] MEDS: Normal Saline Flush 10 ML SYR IVP (13:38)
[2024-02-22] MEDS: IRON SUCROSE COMPLEX 300 MG in Normal Saline 250 ML 167 MG IVPB (13:39)
--- NOTE | 2024-02-22 14:40 | W.OBNST ---
Date of service: 02/22/24 Time of Service: 14:40 NST Evaluation Reason for NST Reasons for Nonstress Test: OTHER, SEE COMMENT (anemia) Reason for NST Other: iron infusion Gestational Age Gestational Age in Weeks and Days: 40 Weeks and 0Days Test and Monitor Explained Test/Monitor Explained: Test Explained, Monitor Explained and Patient Verbalized Understanding Vital Signs Blood Pressure: 107/75 Pulse: 80 Temperature: 98.4 F Urine Results Urine Protein: Negative Urine Ketones: Negative Urine Glucose: Negative Urine Blood: Negative NST Information Date on Monitor: 02/22/24 Time on Monitor: 12:10 Date off Monitor: 02/22/24 Time off Monitor: 13:08 Total Time on Monitor: 58 NST Interventions: PO Hydration Contraction Frequency: irregular NST Evaluation Patient States Movement: Present FHR Baseline: 130 Variability: Moderate 6-25 bpm Accelerations: 15x15 Decelerations: None NST Results: Reactive Note Ultrasound Done: N/A. NST Note Note: RTO 1 wk for NST, CBC, likely 2nd iron infusion NST Reviewed and Verified by: Eloise Cuellar
[2024-02-22 14:41] VITALS: BP 107/75; PULSE 80; TEMP 36.9
== END 2024-02-22 15:03 | disposition other institution (70) ==
LOC: BCD 11:58 → OBS 12:05
PROVIDERS: Visit Provider Advanced Practice Midwife
DX: O99.013 Anemia complicating pregnancy, third trimester (principal); Z3A.40 40 weeks gestation of pregnancy
CPT/HCPCS: 59025; 85027; 86850; 86900; 86901; 96365; J1756

== ENCOUNTER 2024-02-29 09:16 | Outpatient (CLI) | payer SELFPAY ==
[2024-02-29 10:19] VITALS: BP 115/68; PULSE 70; TEMP 36.6
[2024-02-29 10:24] VITALS: BP 115/68; PULSE 70
[2024-02-29] MEDS: Normal Saline Flush 10 ML SYR (11:18)
[2024-02-29 11:25] LABS: HCT 31.3 % (36.0-46.0); HGB 9.3 g/dL (11.2-15.7); MCH 24.4 pg (27.0-33.0); MCHC 29.7 % (32.0-36.0); MCV 82 fL (80-95); MPV 12.6 fL (8.0-11.0); Platelet Count 178 10^3/uL (130-400); RBC 3.81 10^6/uL (3.93-5.22); RDW 19.6 % (11.7-14.6); RDW-SD 47.4 fL; WBC 8.33 10^3/uL (4.4-10.8)
[2024-02-29] MEDS: IRON SUCROSE COMPLEX 300 MG in Normal Saline 250 ML 167 MG IVPB (11:44)
[2024-02-29] MEDS: Normal Saline Flush 10 ML SYR IVP (11:44)
--- NOTE | 2024-02-29 13:43 | W.OBNST ---
Date of service: 02/29/24 Time of Service: 13:43 NST Evaluation Reason for NST Reasons for Nonstress Test: OTHER, SEE COMMENT Reason for NST Other: Low iron Gestational Age Gestational Age in Weeks and Days: 40 Weeks and 0Days Test and Monitor Explained Test/Monitor Explained: Test Explained and Monitor Explained Vital Signs Blood Pressure: 115/68 Pulse: 70 Temperature: 97.9 F Urine Results Urine Protein: Negative Urine Ketones: Negative Urine Glucose: Negative Urine Blood: Negative NST Information Date on Monitor: 02/29/24 Time on Monitor: 10:19 Date off Monitor: 02/29/24 Time off Monitor: 11:09 Total Time on Monitor: 50 NST Interventions: PO Hydration NST Evaluation Patient States Movement: Present FHR Baseline: 145 Variability: Moderate 6-25 bpm Accelerations: 15x15 Decelerations: None NST Results: Reactive Note Ultrasound Done: N/A. NST Note Note: 2nd iron infusion today, hgb increased to 9.3 RTO 1 wk for NST, CBC, KOTA for postdates, likely repeat iron infusion NST Reviewed and Verified by: Eloise Cuellar
[2024-02-29 13:44] VITALS: BP 115/68; PULSE 70; TEMP 36.6
== END 2024-02-29 13:25 ==
LOC: BCD 09:16 → OBS 10:15
PROVIDERS: Visit Provider Advanced Practice Midwife
DX: O99.013 Anemia complicating pregnancy, third trimester (principal); Z3A.40 40 weeks gestation of pregnancy
CPT/HCPCS: 59025; 36415; 85027; 96365; 96366; J1756